=== PATIENT | female | born 1985 | race Caucasian/White ===

== ENCOUNTER 2019-11-15 13:24 | Emergency (ER) | payer OTHER, SELFPAY ==
[2019-11-15 13:30] VITALS: BP 147/97; PULSE 99; RESP 14; TEMP 36.6; O2SAT 99; BMI 24.3
--- NOTE | 2019-11-15 13:30 | DI.RAD.S_ITS ---
PROCEDURE: XR TOE LT MIN 2V INDICATIONS: crush injury TECHNIQUE: 3 views of the 3rd toe were obtained. COMPARISON: None. FINDINGS: Bones: There is a comminuted fracture involving the tuft of the distal phalanx of the 3rd left digit without definite intra-articular extension. No additional fractures are appreciated. No suspicious osseous lesions are identified. No significant degenerative changes are appreciated. Postoperative changes of the ankle are not adequately evaluated. Soft tissues: No suspicious soft tissue densities. No unexpected radiopaque foreign bodies. Soft tissue swelling involving the 3rd toe is present. IMPRESSION: Comminuted tuft fracture of the distal phalanx of the 3rd left toe. Dictated by: kP Bashir M.D. on 11/15/2019 at 13:02 Approved by: Pk Bashir M.D. on 11/15/2019 at 13:03
[2019-11-15 13:34] VITALS: PULSE 100
[2019-11-15] MEDS: LIDOCAINE 2% INJ MDV 1 ML SUBCUT (13:41)
[2019-11-15] MEDS: TET,DIPH,PERTUSS(ACELL),VAC/PF 0.5 ML SYRINGE IM (13:42)
--- NOTE | 2019-11-15 14:08 | ED_ITS ---
HPI - Extremity Injury (Lower) <JOSE MIGUEL Chi - Last Filed: 11/16/19 00:06> General Chief Complaint: Extremity Injury, Lower Stated Complaint: dropped bowl on left foot middle toe Time Seen by Provider: 11/15/19 13:29 Source: patient Mode of arrival: Ambulatory Limitations: no limitations History of Present Illness HPI Narrative: This is a 34-year-old female, current vapor, who presents to ED with chief complain of left 3rd distal toe injury. Patient states she accidentally dropped a Pyrex mixing bowl on affected toe prior coming into ED. The patient reports pain across top of the nail, slow oozing bleeding from affected site since the injury. Patient denies numbness and reports is able to move her toe little but this increases pain. Last tetanus was about 9 years ago. Patient reports 7/10 throbbing pain. Related Data Previous Rx's Medication Instructions Recorded cephalexin [Keflex] 500 mg PO Q6H 7 Days #28 cap 11/15/19 Allergies Allergy/AdvReac Type Severity Reaction Status Date / Time No Known Drug Allergies Allergy Verified 11/15/19 13:32 Review of Systems <JOSE MIGUEL Chi - Last Filed: 11/16/19 00:06> Review of Systems Narrative: General: Denies fever, chills, fatigue, malaise, sweats. HEENT: Denies sinus pain, ear pain, sore throat, difficulty swallowing, dizziness. Respiratory: Denies dyspnea, cough, wheezing, hemoptysis, sputum. Cardiovascular: Denies chest pain, palpitations, orthopnea, edema. Musculoskeletal: See HPI Skin: See HPI Patient History <JOSE MIGUEL Chi - Last Filed: 11/16/19 00:06> Medical History Fx tibia/fibula shaft-op (Acute) No significant past medical history (Acute) tobacco type: vaping alcohol intake frequency: holidays/special occasions only Substance Use Type: does not use Exam <JOSE MIGUEL Chi - Last Filed: 11/16/19 00:06> Narrative Exam Narrative: General appearance: well developed, well nourished, appears to be in discomfort Head: normocephalic, atraumatic, no scalp lesions, non-tender. ENT: Bilateral auditory canals and tympanic membranes clear. Hearing grossly intact. Nose without bleeding, purulent discharge, septal hematoma or deviation. Turbinate without erythema or swelling. Facial sinuses nontender to palpate. Mucous membrane moist, no mucosal lesion. Throat without erythema, tonsillar hypertrophy or exudate. Uvula in midline, airway patent. Neck/Thyroid: neck supple, full range of motion, no visible masses or meningeal signs. No JVD, non-tender without lymphadenopathy. Heart: no clubbing, no cyanosis, no edema. S1 and S2 normal. RRR w/o murmurs, clicks, or bruits. Lungs: Breathing even and unlabored. No stridor. No accessory muscles used. Able to speak in full sentences. Chest: normal shape and expansion. Abdomen: non-obese, non-distended. Neurologic: alert and oriented. Cognitive exam, ASSEMBLER SEAT and PNS grossly intact on informal exam. Psych: good eye contact, normal affect. Initial Vital Signs Initial Vital Signs: Vital Signs Temperature 97.9 F 11/15/19 13:30 Pulse Rate 99 H 11/15/19 13:30 Respiratory Rate 14 11/15/19 13:30 Blood Pressure 147/97 H 11/15/19 13:30 Pulse Oximetry 99 11/15/19 13:30 Skin Trauma: laceration (Left distal 3rd toe above nail bed and along the lateral nail) Nails: other (ecchymosis under the L 3rd nail) Extrem Left lower extremity: foot Details: tenderness, abnormal ROM of toe Details: pain with active ROM and pain with passive ROM, laceration, ecchymosis, vascular exam Details: dorsalis pedis pulse present, tendon exam (slightly decrease strength on affected toe with flexion / extension against reistence) and motor- sensory exam Details: light-touch normal; edema noted <Jesu Rizzo DO - Last Filed: 11/16/19 08:03> Initial Vital Signs Initial Vital Signs: Vital Signs Temperature 97.9 F 11/15/19 13:30 Pulse Rate 99 H 11/15/19 13:30 Respiratory Rate 14 11/15/19 13:30 Blood Pressure 147/97 H 11/15/19 13:30 Pulse Oximetry 99 11/15/19 13:30 Procedures <JOSE MIGUEL Chi - Last Filed: 11/16/19 00:06> Laceration Repair Laceration 1: Site: lower extremity (3rd distal toe) Side (If applicable): left Size (cm): 1 Description: linear (above nail bed) and irregular (along the lateral nail) Depth: simple, single layer Local Anesthetic: lidocaine 2% Amount of anesthesia used (mL): 1.5 Pre-repair: irrigated extensively Skin layer closed with: nylon Size (cm): 4-0 Number of sutures: 4 Technique: simple, interrupted (2 through nail) Orthopedic Splinting/Casting Injury #1: Side: left Lower Extremity Injury Location: toe (nadeen taped, gauze in between) Lower Extremity Immobilizer: post-op shoe Post splinting neuro exam: intact Post splinting vascular exam: intact Placed by: Nursing Scores <JOSE MIGUEL Chi - Last Filed: 11/16/19 00:06> GCS Tara coma scale eye opening: Spontaneous [place] coma scale verbal response: Orientated [place] coma scale motor response: Obey commands Tara coma scale total score: 15 Course <JOSE MIGUEL Chi - Last Filed: 11/16/19 00:06> Orders Ordered: Discontinued Medications Bacitracin (Bacitracin) 1 applic TOP NOW ONE Stop: 11/15/19 14:11 Last Admin: 11/15/19 14:43 Dose: 1 applic Documented by: KATELYNN Cephalexin HCl (Keflex) 500 mg PO NOW ONE Stop: 11/15/19 14:10 Last Admin: 11/15/19 14:43 Dose: 500 mg Documented by: KATELYNN Diphtheria/Tetanus/Acell Pertussis (Adacel) 0.5 ml IM .ONCE ONE Stop: 11/15/19 13:31 Last Admin: 11/15/19 13:42 Dose: 0.5 ml Documented by: KATELYNN Lidocaine HCl (Xylocaine 2%) 1 ml SUBCUT NOW ONE Stop: 11/15/19 13:36 Last Admin: 11/15/19 13:41 Dose: 1 ml Documented by: KATELYNN Vital Signs Vital signs: Vital Signs - 8 hr 11/15/19 13:30 11/15/19 13:34 Temperature 97.9 F Pulse Rate 99 H Pulse Rate [Left Dorsalis Pedis] 100 H Respiratory Rate 14 Blood Pressure 147/97 H Pulse Oximetry 99 <Jesu Rizzo DO - Last Filed: 11/16/19 08:03> Orders Ordered: Discontinued Medications Bacitracin (Bacitracin) 1 applic TOP NOW ONE Stop: 11/15/19 14:11 Last Admin: 11/15/19 14:43 Dose: 1 applic Documented by: KATELYNN Cephalexin HCl (Keflex) 500 mg PO NOW ONE Stop: 11/15/19 14:10 Last Admin: 11/15/19 14:43 Dose: 500 mg Documented by: KATELYNN Diphtheria/Tetanus/Acell Pertussis (Adacel) 0.5 ml IM .ONCE ONE Stop: 11/15/19 13:31 Last Admin: 11/15/19 13:42 Dose: 0.5 ml Documented by: KATELYNN Lidocaine HCl (Xylocaine 2%) 1 ml SUBCUT NOW ONE Stop: 11/15/19 13:36 Last Admin: 11/15/19 13:41 Dose: 1 ml Documented by: KATELYNN Vital Signs Vital signs: Vital Signs - 8 hr 11/15/19 13:30 11/15/19 13:34 Temperature 97.9 F Pulse Rate 99 H Pulse Rate [Left Dorsalis Pedis] 100 H Respiratory Rate 14 Blood Pressure 147/97 H Pulse Oximetry 99 MDM - Extremity Injury (Lower) <JOSE MIGUEL Chi - Last Filed: 11/16/19 00:06> Differential Diagnosis Differential diagnosis: Likely fracture of toe and other (Laceration, toe hematoma/contusion) Medical Records Attestation: I reviewed the patient's medical records. Imaging Data XR-Toe LT: Radiologist's Impression: [address] [address] XRay Report Signed Patient: Meme Pradhan KMR#: [id number] : 1985Acct:[id number] Age/Sex: 34 / FDate of Service: 11/15/19 Loc: ED Accession Number: [id number] Procedure: XR toe LT min 2V Ordering Provider: Jesu Rizzo D.O. PROCEDURE: XR TOE LT MIN 2V INDICATIONS: crush injury TECHNIQUE: 3 views of the 3rd toe were obtained. COMPARISON: None. FINDINGS: Bones: There is a comminuted fracture involving the tuft of the distal phalanx of the 3rd left digit without definite intra-articular extension. No additional fractures are appreciated. No suspicious osseous lesions are identified. No significant degenerative changes are appreciated. Postoperative changes of the ankle are not adequately evaluated. Soft tissues: No suspicious soft tissue densities. No unexpected radiopaque foreign bodies. Soft tissue swelling involving the 3rd toe is present. IMPRESSION: Comminuted tuft fracture of the distal phalanx of the 3rd left toe. Dictated by: Pk Bashir M.D. on 11/15/2019 at 13:02 Approved by: Pk Bashir M.D. on 11/15/2019 at 13:03 [facility] Narrative Medical decision making narrative: This is a 34-year-old female who presents to ED with left 3rd toe open fracture after she accidentally dropped a mixing bowl on affected toe prior coming into ED. x-ray test on the toe shows coming in [place] did talk off fracture of the distal phalanx of the 3rd left toe. Laceration was repaired above and along the lateral nail. Please see procedural note. Patient was medicated with Keflex 500 mg while in ED for open fracture. Wound care was done and nadeen tape was applied on affected toe and ortho shoes has provided for splinting and immobilization. Patient discharged to home with 7 day course of q.i.d. Keflex 500 mg. patient advised to follow-up with technical support engineer and contact phone number has been provided for Dr. Reilly. Return precautions were discussed including signs and symptoms for infection and patient verbalized understanding and agrees with the treatment plan. Patient advised to use Tylenol and Motrin as needed for discomfort and wound care teaching was done. Suture removal in 7-10 days. Discharge Plan Departure Patient Disposition: Home Clinical Impression: Open fracture of third toe of left foot Qualifiers: Encounter type: initial encounter Qualified Code(s): S92.502B - Displaced unspecified fracture of left lesser toe(s), initial encounter for open fracture Discharge Date/Time: 11/15/19 15:33 Instructions: DI for Toe Fracture, DI for Open Fracture Activity Restrictions/Additional Instructions: You have been diagnosed with [open toe fracture on left 3rd toe. According to x-ray test today, there is a company new T8 fracture involving the tuft of the distal balance sub 3rd left digit without definite intra-articular extension.] What to do: *Take your medications as directed. Please take [id number] Tylenol and or Motrin as needed for discomfort. You can take Tylenol up to 4000 mg in 24 hour period. Ibuprofen 400-600 mg 3 times a day as needed with food for discomfort. Use cool pack next couple of days and elevate affected foot. Use hard sole shoes for immobilization and splint. [facility] [place] and please take 4 times a day next 7 days. You were medicated with 1st dose while in ED. Please do not get your wound soaked in the water until suture removal. Keep your dressing intact for next 24 hrs. After then, you could remove your dressing, wash with soap and water. Pat dry with clean paper towel and dress it with antibiotic ointment. You can change dressing as needed and daily. Please monitor for signs and symptoms for infection such as increasing redness, swelling, warmth, pain, fever, purulent discharge. If this occurs, please return to ED or follow up with your primary care physician since your wound may be gotten infected. Please follow up with your primary care provider in 2-3 days for recheck wound. Your suture should be removed [ 7-10 ] days. This can be done by your primary provider, technical support engineer, walk-in clinic or here in ED. Please keep your wound clean, dry and intact all times. *Follow up with technical support engineer next 2-3 days and call for an appointment. Let them know you were seen in the ED and that we asked you to be seen in follow up. *Return to ED if you have any new, worsening, or concerning symptoms, such as [fever, chest pain, breathing difficulty, unable to tolerate fluids, signs of infection or any acute concerns]. Prescriptions: New cephalexin [Keflex] 500 mg capsule 500 mg PO Q6H 7 Days Qty: 28 RF: 0 Referrals: Mary Reilly DPM [Physician] - Stand Alone Forms: Work Release Note
[2019-11-15] MEDS: BACITRACIN OINT 0.9 GM PCKT 1 APPLIC TOP (14:43)
[2019-11-15] MEDS: cephALEXin 250 MG CAPSULE 500 MG PO (14:43)
[2019-11-15 15:26] VITALS: BP 113/56; PULSE 69; RESP 18; O2SAT 69
== END 2019-11-15 15:33 | disposition home or self-care (01) ==
PROVIDERS: Emergency Provider Nurse Practitioner Family
DX: S92.502B Displaced unspecified fracture of left lesser toe(s), initial encounter for open fracture (principal); Z23 Encounter for immunization; X58.XXXA Exposure to other specified factors, initial encounter
CPT/HCPCS: 12001; 73660; 90471; 99283; 99284; 90715

== ENCOUNTER 2021-04-28 08:58 | Emergency (ER) | payer OTHER, SELFPAY ==
[2021-04-28 09:00] VITALS: BP 110/72; PULSE 98; RESP 14; TEMP 36.8; O2SAT 98
--- NOTE | 2021-04-28 09:20 | ED.LOWEXIN ---
HPI - Extremity Injury (Lower) General Chief Complaint: Extremity Injury, Lower Stated Complaint: left knee feels like torn ligament Time Seen by Provider: 04/28/21 09:04 Source: patient Mode of arrival: Ambulatory Limitations: no limitations History of Present Illness HPI Narrative: Patient is a 35-year-old female with right knee and leg pain. She has a history of a spiral tibia and fibular fracture 10 years ago with griffin placement. She says over last few weeks she has had increased clicking. In today she is having increased pain. She says low at night she feels like it is throbbing and unable to sleep. No swelling or erythema no fevers. Surgery was done 10 years ago in [place]. complaint: leg injury Related Data Previous Rx's Medication Instructions Recorded ketorolac 10 mg PO TID PRN #14 tab 04/28/21 Allergies Allergy/AdvReac Type Severity Reaction Status Date / Time No Known Drug Allergies Allergy Verified 04/28/21 09:15 Review of Systems Review of Systems Narrative: GENERAL: Denies chills,fever HEENT: Denies throat pain RESPIRATORY: Denies dyspnea, cough, wheezing CARDIOVASCULAR: Denies chest pain, palpitations GASTROINTESTINAL: Denies nausea, vomiting MUSCULOSKELETAL: See HPI SKIN: No rash, no laceration, no pruritus NEUROLOGIC: Denies weakness, dizziness, headache, numbness 8 point review of systems is negative except for those stated above and HPI Patient History Medical History (Updated 04/28/21 @ 11:22 by Arabella Alvarez DO) Fx tibia/fibula shaft-op No significant past medical history Social History Smoking Status: Current some day smoker Smoking Status: Current some day smoker tobacco type: vaping alcohol intake frequency: holidays/special occasions only Substance Use Type: does not use Exam Initial Vital Signs Initial Vital Signs: Vital Signs Temperature 98.3 F 04/28/21 09:00 Pulse Rate 98 H 04/28/21 09:00 Respiratory Rate 14 04/28/21 09:00 Blood Pressure 110/72 04/28/21 09:00 Pulse Oximetry 98 04/28/21 09:00 GENERAL: Well-appearing, well-nourished and in no acute distress. CARDIOVASCULAR: peripheral pulses in tact, cap refill <2 sec RESPIRATORY: No respiratory distress, speaks in full sentences without difficulty EXTREMITIES: Normal range of motion, no clubbing or edema. Neurovascularly intact Left lower extremity is stable no erythema minimal swelling NEUROLOGICAL: Cranial nerves II through XII grossly intact. Normal gait and speech. SKIN: Warm, dry, no petechiae, no rashes or lesions. Course Orders Ordered: ED Orders 04/28/21 09:32 XR tibia fibula LT 2V Stat Vital Signs Vital signs: Vital Signs - 8 hr 04/28/21 09:00 04/28/21 09:43 04/28/21 11:33 Temperature 98.3 F Pulse Rate 98 H 78 Pulse Rate [Left Dorsalis Pedis] 90 Respiratory Rate 14 14 Blood Pressure 110/72 122/78 Pulse Oximetry 98 99 [facility] - Extremity Injury (Lower) Imaging Data Extremity x-ray #1: Radiologist's Impression: PROCEDURE: XR TIBIA FIBULA LT 2V INDICATIONS: hardware pain TECHNIQUE: 2 views of the tibia and fibula were acquired. COMPARISON: None. FINDINGS: Bones: Tibial intramedullary griffin with fixation screws in good position. No evidence of fracture or hardware loosening. Soft tissues: No suspicious soft tissue calcifications or masses. IMPRESSION: Tibial intramedullary griffin without evidence of hardware failure loosening. Dictated by: Steve Bruno M.D. on 04/28/2021 at 10:01 Approved by: Steve Bruno M.D. on 04/28/2021 at 10:05 [facility] Narrative Medical decision making narrative: No evidence of hardware loosening. Nonetheless I recommend she follow up Orthopedics. Discharge Plan Departure Patient Disposition: Home Clinical Impression: Leg pain, left Instructions: DI for Knee Pain Activity Restrictions/Additional Instructions: *You have been diagnosed with left leg pain *What to do: at this time there is no evidence of hardware loosening or malfunction. However I encourage you to follow-up with orthopedics. use crutches as needed. *Continue to take medications as directed--> SENT TO [facility] [place] ketorolac 10 mg every 8 hours if needed for [id number] pain do not take with other NSAIDs such as ibuprofen, Advil, Aleve, naproxen Tylenol 1000 mg every 6 hours if needed for [id number] pain *Follow up with your primary care provider in 2-3 days *Return to ER if you should have increasing pain, swelling, redness, fever any new, worsening or concerning symptoms Prescriptions: New ketorolac 10 mg tablet 10 mg PO TID PRN (Reason: pain) Qty: 14 RF: 0 Referrals: [facility] [Provider Group]
--- NOTE | 2021-04-28 09:32 | DI.RAD.S_ITS ---
PROCEDURE: XR TIBIA FIBULA LT 2V INDICATIONS: hardware pain TECHNIQUE: 2 views of the tibia and fibula were acquired. COMPARISON: None. FINDINGS: Bones: Tibial intramedullary griffin with fixation screws in good position. No evidence of fracture or hardware loosening. Soft tissues: No suspicious soft tissue calcifications or masses. IMPRESSION: Tibial intramedullary griffin without evidence of hardware failure loosening. Dictated by: Steve Bruno M.D. on 04/28/2021 at 10:01 Approved by: Stvee Bruno M.D. on 04/28/2021 at 10:05
[2021-04-28 09:43] VITALS: PULSE 90
[2021-04-28 11:33] VITALS: BP 122/78; PULSE 78; RESP 14; O2SAT 99
== END 2021-04-28 11:36 | disposition home or self-care (01) ==
PROVIDERS: Emergency Provider Emergency Medicine
DX: M79.605 Pain in left leg (principal)
CPT/HCPCS: 73590; 99283